=== PATIENT | female | born 1935 | race Caucasian/White ===

== ENCOUNTER 2017-11-16 10:44 | Outpatient (CLI) | payer OTHER | END 2017-11-16 11:00 | disposition home or self-care (01) | LOC: SONOGRAMA 10:44 | DX: E04.1 Nontoxic single thyroid nodule (principal) ==

== ENCOUNTER 2017-11-16 14:54 | Outpatient (CLI) | payer OTHER | END 2017-11-16 16:16 | disposition home or self-care (01) | LOC: RAD 14:54 | DX: M25.561 Pain in right knee (principal); M25.562 Pain in left knee ==

== ENCOUNTER → 2017-11-16 | Outpatient (CLI) | payer OTHER ==
[~2017-11-16] MED LIST: CELLCEPT250 MG PO; Cozaar PO; FOLIC ACID1 MG PO; LEVAQUIN750 MG PO; MESTINON60 M1 PO; Neurin-Sl Tablet Sl SL; VITAMIN B COMPL1 CAP PO; XARELTO15 MG PO; XARELTO20 MG PO
== END | disposition home or self-care (01) ==
LOC: PPHC 13:26
DX: Z02.89 Encounter for other administrative examinations (principal)

== ENCOUNTER 2018-06-04 14:43 | Outpatient (CLI) | payer OTHER | END 2018-06-04 15:00 | disposition home or self-care (01) | LOC: TOM 14:43 | DX: G70.00 Myasthenia gravis without (acute) exacerbation (principal) ==

== ENCOUNTER → 2019-01-31 | Outpatient (CLI) | payer OTHER | END | disposition home or self-care (01) | LOC: NUCLEAR 11:00 | DX: I87.2 Venous insufficiency (chronic) (peripheral) (principal) ==

== ENCOUNTER 2019-07-01 10:17 | Outpatient (CLI) | payer OTHER | END 2019-07-01 10:26 | disposition home or self-care (01) | LOC: SONOGRAMA 10:17 | DX: E04.2 Nontoxic multinodular goiter (principal) ==

== ENCOUNTER 2021-06-28 07:00 | Outpatient (CLI) | payer OTHER | END 2021-06-28 07:15 | disposition home or self-care (01) | LOC: EDBD 07:00 → PPH VACUNA 07:00 | PROVIDERS: ATTEND Emergency Medicine Pediatric Emergency Medicine | DX: Z23 Encounter for immunization (principal) ==

== ENCOUNTER 2021-07-19 08:00 | Outpatient (CLI) | payer OTHER | END 2021-07-19 08:30 | disposition home or self-care (01) | LOC: PPH VACUNA 08:00 | PROVIDERS: ATTEND Emergency Medicine Pediatric Emergency Medicine | DX: Z23 Encounter for immunization (principal) ==

== ENCOUNTER 2022-01-27 08:00 | Outpatient (CLI) | payer OTHER | END 2022-01-27 08:30 | disposition home or self-care (01) | LOC: PPH VACUNA 08:00 | PROVIDERS: ATTEND Emergency Medicine Pediatric Emergency Medicine | DX: Z23 Encounter for immunization (principal) ==

== ENCOUNTER 2023-03-28 06:29 | Emergency (ER) | payer OTHER ==
[~2023-03-28] VITALS: Ht 152.4 cm; Wt 49.9 kg
[2023-03-28] MEDS ORDERED: MYCOPHENOLATE250 MG PO (07:05)
[2023-03-28] MEDS ORDERED: GABAPENTIN400 MG PO (07:06)
[2023-03-28] MEDS ORDERED: PYRIDOSTIGMINE180 MG PO (07:06)
[2023-03-28] MEDS ORDERED: VITAMIN D310 MCG/1 M PO (07:07)
[2023-03-28] MEDS ORDERED: MAXIMUM D3325 MCG PO (07:07)
[2023-03-28] MEDS ORDERED: ARTHRITIS PAIN50 GM (07:07)
[2023-03-28] MEDS ORDERED: B-COMPLEX/C T400 MCG PO (07:07)
[2023-03-28] MEDS ORDERED: LOSARTAN POTASS50 MG PO (07:08)
[2023-03-28] MEDS ORDERED: CLOPIDOGREL BIS75 MG PO (07:09)
== END 2023-03-28 10:00 | disposition home or self-care (01) ==
LOC: ER 06:29
DX: S09.8XXA Other specified injuries of head, initial encounter (principal); W18.11XA Fall from or off toilet without subsequent striking against object, initial encounter; Y93.89 Activity, other specified; Y92.012 Bathroom of single-family (private) house as the place of occurrence of the external cause; Z88.6 Allergy status to analgesic agent; I10 Essential (primary) hypertension; G70.00 Myasthenia gravis without (acute) exacerbation; M17.11 Unilateral primary osteoarthritis, right knee

== ENCOUNTER 2023-12-31 11:58 | Emergency (ER) | payer OTHER ==
[~2023-12-31] VITALS: Ht 154.9 cm; Wt 46.3 kg
[~2023-12-31 11:58] MED LIST changes: +ARTHRITIS PAIN50 GM; +B-COMPLEX/C T400 MCG PO; +CLOPIDOGREL BIS75 MG PO; +COZAAR50 MG PO; +DOCUSATE SODIU100 MG PO; +GABAPENTIN400 MG PO; +LOSARTAN POTASS50 MG PO; +MAXIMUM D3325 MCG PO; +MYCOPHENOLATE250 MG PO; +PYRIDOSTIGMINE180 MG PO; +VITAMIN D310 MCG/1 M PO
[2023-12-31] MEDS ORDERED: ONDANSETRON HCL 2 MG/ML VIAL IV ONE ×2 (14:45→15:30)
[2023-12-31] MEDS ORDERED: FAMOTIDINE/PF 20 MG/2 ML VIAL IV ONE ×2 (14:45→15:30)
[2023-12-31] MEDS ORDERED: 0.9 % SODIUM CHLORIDE 500 ML IV ONE (14:45)
[2023-12-31] MEDS ORDERED: ACETAMINOPHEN 500 MG GEL..CAP PO ONE (15:30)
[2023-12-31] MEDS ORDERED: METHYLPREDNISOLONE SOD SUCC 125 MG VIAL IV ONE (15:30)
[2023-12-31 16:53] LABS: HEMATOCRIT 40.9 % (36.0-45.00); HEMOGLOBIN 13.9 g/dL (12.0-15.00); MEAN CELL VOLUME 98.7 fL (80.00-100.00); MEAN CORPUSCULAR HEMOGLOBIN 33.5 pg (27.00-32.0); PLATELET COUNT 248 K/uL (150-450); RED BLOOD COUNT 4.14 M/uL (4.00-6.00); RED CELL DISTRIBUTION WIDTH 13.8 % (11.5-14.5)
[2023-12-31] MEDS ORDERED: MEDROLPACK PO (18:32)
== END 2023-12-31 19:08 | disposition home or self-care (01) ==
LOC: ER 11:58
PROVIDERS: Nurse Practitioner Family
DX: M77.8 Other enthesopathies, not elsewhere classified (principal); M25.512 Pain in left shoulder; I10 Essential (primary) hypertension; Z88.6 Allergy status to analgesic agent
CPT/HCPCS: 36415; 73030; 93005; 96365; 96366; 99283; J2405 ×2; J3490 ×3; J7042

== ENCOUNTER 2024-10-13 07:18 | Emergency (ER) | payer OTHER ==
[~2024-10-13] VITALS: Ht 157.5 cm; Wt 47.6 kg
[~2024-10-13 07:18] MED LIST changes: +MEDROLPACK PO
[2024-10-13] MEDS ORDERED: PLAVIX75 MG (07:35)
[2024-10-13 09:13] LABS: HEMATOCRIT 39.7 % (36.0-45.00); HEMOGLOBIN 13.2 g/dL (12.0-15.00); MEAN CELL VOLUME 99.7 fL (80.00-100.00); MEAN CORPUSCULAR HEMOGLOBIN 33.2 pg (27.00-32.0); MEAN CORPUSCULAR HGB CONC 33.3 g/dl (32.0-36.0); PLATELET COUNT 306 K/uL (150-450); RED BLOOD COUNT 3.98 M/uL (4.00-6.00); RED CELL DISTRIBUTION WIDTH 14.1 % (11.5-14.5)
[2024-10-13 09:32] LABS: ALBUMIN 3.6 gm/dL (3.4-5.0); BILIRUBIN TOTAL 0.5 mg/dL (0.3-1.2); CALCIUM 9.5 mg/dL (8.5-10.1); CREATININE SERUM 0.68 mg/dL (0.55-1.02); GFR 81.47; GLOBULINA 3.9 G/DL (2.4-3.5); POTASSIUM 3.92 mEq/L (3.5-5.1); TOTAL PROTEIN 7.5 gm/dL (6.4-8.2)
[2024-10-13] MEDS ORDERED: LIDOCAINE HCL 1% 10ML VIAL ONE (09:36)
[2024-10-13] MEDS ORDERED: CEFTRIAXONE SODIUM 1,000 MG VIAL ONE (09:36)
[2024-10-13] MEDS ORDERED: FAMOTIDINE/PF 20 MG/2 ML VIAL ONE (09:37)
[2024-10-13 09:43] LABS: INR 0.97; PARTIAL THROMBOPLASTIN TIME 27.6 SECONDS (22.0-34.0); PROTHROMBIN TIME 10.6 SECONDS (9.0-11.5)
== END 2024-10-13 14:42 | disposition home or self-care (01) ==
LOC: ER 07:18
PROVIDERS: General Practice
DX: S09.8XXA Other specified injuries of head, initial encounter (principal); W06.XXXA Fall from bed, initial encounter; Y93.89 Activity, other specified; Y92.89 Other specified places as the place of occurrence of the external cause; Y99.8 Other external cause status; Z88.6 Allergy status to analgesic agent